=== PATIENT | female | born 2000 | race Caucasian/White ===

== ENCOUNTER 2022-09-03 01:20 | Emergency (ER) | payer SELFPAY ==
[~2022-09-03] VITALS: Ht 162.6 cm; Wt 75.0 kg
[2022-09-03 01:29] VITALS: BP 98/49
== END 2022-09-03 02:44 | disposition left against medical advice (07) ==
LOC: ER 02:12
DX: Z53.21 Procedure and treatment not carried out due to patient leaving prior to being seen by health care provider (principal)
CPT/HCPCS: 99281

== ENCOUNTER 2022-09-07 20:37 | Emergency (ER) | payer SELFPAY ==
[~2022-09-07] VITALS: Ht 167.6 cm; Wt 73.0 kg
[2022-09-07 22:01] LABS: BASOPHILS % 0.5 % (0.0-2.0); EOSINOPHILS % 2.7 % (0.0-5.0); HEMATOCRIT. 36.8 % (36.0-48.0); HEMOGLOBIN. 12.7 g/dL (12.0-16.0); LYMPHOCYTES % 35.9 % (20.0-50.0); MEAN CORPUSCULAR HEMOGLOBIN 30.3 pg (28.0-32.0); MEAN CORPUSCULAR VOLUME 87.6 fL (81.0-99.0); MEAN PLATELET VOLUME 7.9 fl (7.4-10.4); MONOCYTES % 6.9 % (2.0-8.0); PLATELET 435 x1000/uL (130-400); RED BLOOD CELL COUNT 4.21 mill/uL (4.2-5.4); RED CELL DISTRIBUTION WIDTH 13.3 % (11.6-14.6)
[2022-09-07 22:09] LABS: CHLORIDE 109 mEq/L (98-107)
[2022-09-08] MEDS ORDERED: DICYCLOMINE HCL 10MG CAPSULE PO NR (00:14)
[2022-09-08] MEDS ORDERED: MAGNESIUM/ALUMINUM HYDROXIDE/SIMETHICONE 30ML UDC PO NR (00:14)
[2022-09-08] MEDS ORDERED: ONDANSETRON HCL 4MG/2ML INJ IV NR (00:14)
[2022-09-08] MEDS ORDERED: VISCOUS LIDOCAINE 2% 15 ML UDC PO NR (00:14)
[2022-09-08] MEDS ORDERED: KETOROLAC 30MG/ML VIAL IV NR (00:14)
[2022-09-08 00:44] LABS: CLARITY URINE CLOUDY (CLEAR); COLOR URINE ORANGE (YELLOW); KETONES URINE TRACE (NEGATIVE); LEUKOCYTE ESTERASE URINE TRACE (NEGATIVE); NITRITE URINE NEGATIVE (NEGATIVE); OCCULT BLOOD URINE 3+ (NEGATIVE); PH URINE 6.5 (4.5-8.0); PROTEIN URINE 1+ (NEGATIVE); SPECIFIC GRAVITY URINE 1.019 (1.005-1.030)
[2022-09-08] MEDS: SODIUM CHLORIDE 0.9% 1,000 ML IV NR ×2 (00:48→01:34)
[2022-09-08] MEDS ORDERED: OMEP20CA14 MT (01:24)
[2022-09-08 01:58] VITALS: BP 108/66
== END 2022-09-08 02:00 | disposition home or self-care (01) ==
LOC: ER 20:37
DX: K29.70 Gastritis, unspecified, without bleeding (principal); R10.13 Epigastric pain; K21.9 Gastro-esophageal reflux disease without esophagitis; Z98.890 Other specified postprocedural states
CPT/HCPCS: 36415; 80053; 81003; 81025; 83690; 85025; 93005; 96361; 96374; 96375; 99284; J1885; J2405; Z7610

== ENCOUNTER 2022-12-04 11:45 | Emergency (ER) | payer SELFPAY ==
[~2022-12-04] VITALS: Ht 162.6 cm; Wt 75.7 kg
[~2022-12-04 11:45] MED LIST: OMEP20CA14 MT
[2022-12-04 12:17] VITALS: O2SAT 100
[2022-12-04] MEDS ORDERED: FAMOTIDINE 20MG/2ML VIAL IV STA (12:46)
[2022-12-04] MEDS ORDERED: SODIUM CHLORIDE 0.9% 1,000 ML IV ONE (13:00)
[2022-12-04 13:09] VITALS: BP 115/60; PULSE 72; RESP 17; TEMP 98.6
[2022-12-04 13:26] LABS: BASOPHILS % 0.7 % (0.0-2.0); EOSINOPHILS % 0.2 % (0.0-5.0); HEMATOCRIT. 43.8 % (36.0-48.0); HEMOGLOBIN. 14.7 g/dL (12.0-16.0); LYMPHOCYTES % 12.8 % (20.0-50.0); MEAN CORPUSCULAR HEMOGLOBIN 29.4 pg (28.0-32.0); MEAN CORPUSCULAR HGB CONC 33.5 g/dL (31.0-37.0); MEAN CORPUSCULAR VOLUME 87.9 fL (81.0-99.0); MEAN PLATELET VOLUME 8.6 fl (7.4-10.4); MONOCYTES % 3.8 % (2.0-8.0); NEUTROPHILS % 82.5 % (40.0-76.0); PLATELET 435 x1000/uL (130-400); RED BLOOD CELL COUNT 4.98 mill/uL (4.2-5.4); RED CELL DISTRIBUTION WIDTH 13.9 % (11.6-14.6)
[2022-12-04 13:32] LABS: CHLORIDE 107 mEq/L (98-107); INDEX HEMOLYSI 1 (1-3); INDEX ICTERIC 1 (1-4); INDEX LIPEMIC 1 (1-3); POTASSIUM 3.3 mEq/L (3.5-5.1); SODIUM 137 mEq/L (136-145)
[2022-12-04 13:35] LABS: HCG SCREEN NEGATIVE
[2022-12-04 13:42] LABS: ALANINE AMINOTRANSFERASE 38 IU/L (13-61); ASPARTATE AMINOTRANSFERASE 36 IU/L (15-37); BILIRUBIN TOTAL 0.7 mg/dL (0.1-1.0); CALCIUM 9.3 mg/dL (8.5-10.1); CARBON DIOXIDE 25 mEq/L (21-32); CREATININE 0.6 mg/dL (0.6-1.3); GLUCOSE 120 mg/dL (70-105); PROTEIN TOTAL 7.9 g/dL (6.0-8.3); UREA NITROGEN BLOOD 12 mg/dL (7-21)
[2022-12-04] MEDS ORDERED: MORPHINE SULFATE 2 MG/ML CPJ (NOT FOR IM USE) IV ONE (14:15)
[2022-12-04] MEDS ORDERED: DICYCLOMINE 10 MG/5 ML ORAL SYR PO STA (16:20)
[2022-12-04] MEDS ORDERED: MORPHINE SULFATE 4 MG/ML CPJ (NOT FOR IM USE) IV STA (16:20)
[2022-12-04] MEDS ORDERED: MAGNESIUM/ALUMINUM HYDROXIDE/SIMETHICONE 30ML UDC PO STA (16:20)
[2022-12-04] MEDS ORDERED: DICY10CA88 MT (17:55)
[2022-12-04] MEDS ORDERED: OMEP20CA14 MT (17:55)
== END 2022-12-04 18:35 | disposition home or self-care (01) ==
LOC: ER 12:16
DX: R10.13 Epigastric pain (principal); R55 Syncope and collapse; Z98.890 Other specified postprocedural states
CPT/HCPCS: 80053; 82962; 84703; 83690; 85025; 36415; 76705; 96361; 96374; 96375; 96376; 99285; J3490; J2270 ×2; J7030; Z7610 ×3